=== PATIENT | male | born 1955 | race Caucasian/White ===

== ENCOUNTER → 2016-11-24 | Outpatient (REF) | payer BC, OTHER ==
[2016-11-24 14:58] LABS: BASOPHILS % (AUTO) 1 % (0-2); EOSINOPHILS # (AUTO) 0.3 10^3uL; EOSINOPHILS % (AUTO) 3 % (0-4); LYMPHOCYTES # (AUTO) 3.2 X10^3; MEAN CORPUSCULAR HEMOGLOBIN 30.5 PG (26.0-34.0); MEAN CORPUSCULAR HGB CONC 34.1 g/dL (31.0-37.0); MEAN CORPUSCULAR VOLUME 90 FL (80-100); MEAN PLATELET VOLUME 9.6 FL (6.0-9.5); MONOCYTES # (AUTO) 0.9 X10^3; MONOCYTES % (AUTO) 9 % (3-11); NEUTROPHILS # (AUTO) 5.7 X10^3; NEUTROPHILS % (AUTO) 56 % (51-67); PLATELET COUNT 313 10^3uL (150-450); WHITE BLOOD COUNT 10.18 10^3uL (4.0-11.0)
[2016-11-24 15:07] LABS: ANION GAP 15.7 MEQ/L (3-15); CALCULATED IONIZED CALCIUM 4.3 mg/dL (3.8-4.6); TOTAL PROTEIN 6.8 g/dL (6.4-8.5)
[2016-11-24 15:42] LABS: ERYTHROCYTE SEDIMENTATION RT* 22 mm/hr (0-19)
== END ==
LOC: LAB 14:38
PROVIDERS: ATTEND Family Medicine
DX: R53.83 Other fatigue (principal)
CPT/HCPCS: 80053; 85025; 85652; 86140

== ENCOUNTER 2017-02-02 10:41 | Emergency (ER) | payer OTHER ==
[~2017-02-02] VITALS: Ht 170.2 cm; Wt 60.0 kg
[~2017-02-02 10:41] MED LIST: ASPI-860 PO; BPR75T PO; CA C1TAB74 PO; CHOL200018 PO; DULO60CA58 PO; DULO60CA7; FNT75TD TOP; KETO10TA55 PO; MAGN250T7 PO; OXYC1TAB8 PO; [UNRECOGNIZED DRUG - CODE] PO; duragesic; flexeril; lortab
--- OUTSIDE RECORDS SUMMARY | 2017-02-02 10:46 | XMS REPORT | Continuity of Care Document ---
Author Author [facility] Organization [facility] Address Unknown Phone Unavailable Allergies Active Description Code Type Severity Reaction Onset Reported/Identified Relationship to Patient Clinical Status Yes NKA NKA Drug Allergy N/A N/A Yes No Known Allergies [id number] Drug Allergy Unknown N/A 12/03/2015 Medications Problems Date Dx Coded Attending Type Code Diagnosis Diagnosed By 05/14/2013 Ot 724.5 BACKACHE NOS 05/14/2013 Ot 847.2 SPRAIN LUMBAR REGION 05/14/2013 Ot E849.[address] NEC 05/14/2013 Ot E927.0 OVEREXERTION FROM SUDDEN STRENUOUS MOVEM 09/19/2014 ALFREDO IGLESIAS, BARRY Ramirez Ot 240.9 10/28/2014 ALFREDO IGLESIAS, BARRY Ramirez Ot 276.7 10/28/2014 ALFREDO IGLESIAS, BARRY M Ot 780.79 12/10/2014 Ot 719.45 12/10/2014 Ot 789.30 12/10/2014 Ot V70.4 12/10/2014 Didi IGLESIAS, Tahir Bazzi Ot 805.4 12/10/2014 WILGERS, ORTEGA L ROUSTABOUT PUSHER Ot 240.9 12/10/2014 WILGERS, ORTEGA L ROUSTABOUT PUSHER Ot 780.79 12/10/2014 WILGERS, ORTEGA L ROUSTABOUT PUSHER Ot V77.91 12/10/2014 ALFREDO IGLESIAS, BARYR Ramirez Ot 240.9 12/10/2014 ALFREDO IGLESIAS, BARRY M Ot 276.7 12/10/2014 ALFREDO IGLESIAS, BARRY M Ot 780.79 12/02/2015 Ot 719.45 12/02/2015 Ot 789.30 12/02/2015 Ot V70.4 12/02/2015 Didi IGLESIAS, Tahir Bazzi Ot 805.4 12/02/2015 WILGERS, ORTEGA L ROUSTABOUT PUSHER Ot 240.9 12/02/2015 WILGERS, ORTEGA L ROUSTABOUT PUSHER Ot 780.79 12/02/2015 WILGERS, ORTEGA L ROUSTABOUT PUSHER Ot V77.91 12/02/2015 ALFREDO IGLESIAS, BARRY Ramirez Ot 240.9 12/02/2015 ALFREDO IGLESIAS, BARRY Ramirez Ot 276.7 12/02/2015 ALFREDO IGLESIAS, BARRY Ramirez Ot 780.79 12/02/2015 Ot 719.45 12/02/2015 Ot 789.30 12/02/2015 Ot V70.4 12/02/2015 Didi IGLESIAS, Tahir V Ot 805.4 12/02/2015 WILCORDELL, ORTEGA L ROUSTABOUT PUSHER Ot 240.9 12/02/2015 WILGERS, ORTEGA L ROUSTABOUT PUSHER Ot 780.79 12/02/2015 WILGERS, ORTEGA L ROUSTABOUT PUSHER Ot V77.91 12/02/2015 ALFREDO IGLESIAS, BARRY Ramirez Ot 240.9 12/02/2015 ALFREDO IGLESIAS, BARRY Ramirez Ot 276.7 12/02/2015 ALFREDO IGLESIAS, BARRY Ramirez Ot 780.79 12/05/2015 ALFREDO IGLESIAS, BARRY Ramirez Ot F11.20 OPIOID DEPENDENCE, UNCOMPLICATED 12/05/2015 ALFREDO IGLESIAS, BARRY Ramirez Ot F32.9 MAJOR DEPRESSIVE DISORDER, SINGLE EPISOD 12/05/2015 ALFREDO IGLESIAS, BARRY Ramirez Ot K21.9 GASTRO-ESOPHAGEAL REFLUX DISEASE WITHOUT 12/05/2015 ALFREDO IGLESIAS, BARRY Ramirez Ot Z72.0 TOBACCO USE 01/10/2016 CIERRA ESPINOSA MD Ot N20.1 CALCULUS OF URETER 01/10/2016 CIERRA ESPINOSA MD Ot R10.31 RIGHT LOWER QUADRANT PAIN 01/18/2016 CIERRA ESPINOSA MD Ot N20.1 01/18/2016 CIERRA ESPINOSA MD Ot R10.31 01/20/2016 AMANDA PANDEY DO Ot N50.8 01/20/2016 AMANDA PANDEY DO Ot R10.31 03/01/2016 BARRY FUENTES MD Ot K43.9 VENTRAL HERNIA WITHOUT OBSTRUCTION OR GA 03/01/2016 BARRY FUENTES MD Ot N20.1 CALCULUS OF URETER 03/01/2016 BARRY FUENTES MD Ot R31.9 HEMATURIA, UNSPECIFIED 03/08/2016 BARRY FUENTES MD Ot K43.9 VENTRAL HERNIA WITHOUT OBSTRUCTION OR GA 03/08/2016 BARRY FUENTES MD Ot N20.1 CALCULUS OF URETER 03/08/2016 BARRY FUENTES MD Ot R31.9 HEMATURIA, UNSPECIFIED 03/20/2016 BARRY FUENTES MD Ot M48.03 SPINAL STENOSIS, CERVICOTHORACIC REGION 03/20/2016 BARRY FUENTES MD Ot M54.2 CERVICALGIA 04/19/2016 Eduardo Anglin N20.1 Calculus Of Ureter 04/20/2016 BARRY FUENTES MD Ot M48.03 SPINAL STENOSIS, CERVICOTHORACIC REGION 04/20/2016 BARRY FUENTES MD, Ot M54.2 CERVICALGIA 07/07/2016 Eduardo Anglin MD Ot R10.2 PELVIC AND PERINEAL PAIN 07/08/2016 Eduardo Anglin MD Ot R39.15 URGENCY OF URINATION 07/10/2016 Eduardo Anglin MD Ot R39.15 URGENCY OF URINATION 07/10/2016 Eduardo Anglin MD Ot R39.15 URGENCY OF URINATION 07/17/2016 Eduardo Anglin MD, Ot R10.2 PELVIC AND PERINEAL PAIN 07/20/2016 Eduardo Anglin MD Ot R10.2 PELVIC AND PERINEAL PAIN 07/20/2016 Eduardo Anglin MD Ot R39.15 URGENCY OF URINATION 11/25/2016 Ot 719.45 JOINT PAIN-PELVIS 11/25/2016 Ot 789.30 ABDOMINAL/PELVIC SWELLING,MASS/LUMP UNSP 11/25/2016 Ot V70.4 EXAM-MEDICOLEGAL REASONS 11/25/2016 Didi IGLESIAS, Tahir Bazzi Ot 805.4 FX LUMBAR VERTEBRA-CLOSE 11/25/2016 ORTGEA CASTANON ROUSTABOUT PUSHER Ot 240.9 GOITER NOS 11/25/2016 ORTEGA CASTANON L ROUSTABOUT PUSHER Ot 780.79 OTH MALAISE FATIGUE 11/25/2016 ORTEGA CASTANON L ROUSTABOUT PUSHER Ot V77.91 SCREEN LIPOID DISORDERS 11/25/2016 BARRY FUENTES MD Ot 240.9 GOITER NOS 11/25/2016 BARRY FUENTES MD Ot 276.7 HYPERPOTASSEMIA 11/25/2016 BARRY FUENTES MD Ot 780.79 OTH MALAISE FATIGUE 11/25/2016 AMANDA PANDEY DO Ot N50.8 OTHER SPECIFIED DISORDERS OF MALE GENITA 11/25/2016 AMANDA PANDEY DO Ot R10.31 RIGHT LOWER QUADRANT PAIN 11/25/2016 BARRY FUENTES MD Ot K43.9 VENTRAL HERNIA WITHOUT OBSTRUCTION OR GA 11/25/2016 BARRY FUENTES MD Ot N20.1 CALCULUS OF URETER 11/25/2016 BARRY FUENTES MD Ot R31.9 HEMATURIA, UNSPECIFIED 11/25/2016 BARRY FUENTES MD Ot M48.03 SPINAL STENOSIS, CERVICOTHORACIC REGION 11/25/2016 BARRY FUENTES MD Ot M54.2 CERVICALGIA 11/25/2016 Eduardo Anglin MD Ot R10.2 PELVIC AND PERINEAL PAIN 11/25/2016 Eduardo Anglin MD Ot R39.15 URGENCY OF URINATION 11/29/2016 BARRY FUENTES MD Ot R53.83 OTHER FATIGUE 11/30/2016 Ot 719.45 JOINT PAIN-PELVIS 11/30/2016 Ot 789.30 ABDOMINAL/PELVIC SWELLING,MASS/LUMP UNSP 11/30/2016 Ot V70.4 EXAM-MEDICOLEGAL REASONS 11/30/2016 Didi IGLESIAS, Tahir Bazzi Ot 805.4 FX LUMBAR VERTEBRA-CLOSE 11/30/2016 WILGERS, ORTEGA L ROUSTABOUT PUSHER Ot 240.9 GOITER NOS 11/30/2016 WILGERS, ORTEGA L ROUSTABOUT PUSHER Ot 780.79 OTH MALAISE FATIGUE 11/30/2016 WILGERS, ORTEGA L ROUSTABOUT PUSHER Ot V77.91 SCREEN LIPOID DISORDERS 11/30/2016 BARRY FUENTES MD Ot 240.9 GOITER NOS 11/30/2016 BARRY FUENTES MD Ot 276.7 HYPERPOTASSEMIA 11/30/2016 BARRY FUENTES MD Ot 780.79 OTH MALAISE FATIGUE 11/30/2016 AMANDA PANDEY DO Ot N50.8 OTHER SPECIFIED DISORDERS OF MALE GENITA 11/30/2016 AMANDA PANDEY DO Ot R10.31 RIGHT LOWER QUADRANT PAIN 11/30/2016 BARRY FUENTES MD Ot K43.9 VENTRAL HERNIA WITHOUT OBSTRUCTION OR GA 11/30/2016 BARRY FUENTES MD Ot N20.1 CALCULUS OF URETER 11/30/2016 BARRY FUENTES MD Ot R31.9 HEMATURIA, UNSPECIFIED 11/30/2016 BARRY FUENTES MD Ot M48.03 SPINAL STENOSIS, CERVICOTHORACIC REGION 11/30/2016 BARRY FUENTES MD Ot M54.2 CERVICALGIA 11/30/2016 Eduardo Anglin MD Ot R10.2 PELVIC AND PERINEAL PAIN 11/30/2016 Eduardo Anglin MD Ot R39.15 URGENCY OF URINATION 11/30/2016 ALFREDO IGLESIAS, BARRY Ramirez Ot R53.83 OTHER FATIGUE 11/30/2016 BARRY FUENTES MD, Ot R53.83 OTHER FATIGUE Procedures Results Test Result Range UA (urinalysis) - 07/04/16 10:36 COLLECTION METHOD CLEAN CATCH Color of urine by auto Yellow Urine appearance determination Clear Urine pH measurement by automated test strip 6.0 5.0 - 8.0 Specific gravity of urine by automated test strip 1.020 1.005-1.030 PROTEIN, URINE Negative Urine glucose detection by automated test strip Negative Negative Urine erythrocytes count by automated test strip (number/volume) Trace-intact Negative Urine ketones detection by automated test strip Negative Negative NITRITE,URINE Negative Negative Urine total bilirubin detection by automated test strip Negative Negative Urine urobilinogen measurement by automated test strip (mass/volume) 0.2 0.2-1.0 Urine leukocyte esterase detection by dipstick Negative Negative Microscopic examination of urine - 07/04/16 10:36 Urine volume measurement 12 mL Urine erythrocytes detection by automated method 10-20 Automated urine sediment leukocyte count by microscopy (number/high power field ) None Seen Bacteria None Seen Negative SQUAMOUS EPITHELIAL CELL,UR 0-2 MUCOUS,URINE 1+ Hyaline casts detection in urine sediment by light microscopy Rare Urine culture - 07/04/16 10:36 Urine culture MCKENZIE FOR RESULTS: * - NEW RESULT - RESULT WAS MODIFIED AFTER FINAL STATUS SET Comprehensive metabolic panel - 11/24/16 12:55 Sodium measurement 93 70-110 CARBON DIOXIDE 27 22-29 Serum or plasma anion gap 15.7 3-15 BLOOD UREA NITROGEN 13 7-18 CREATININE SERUM 0.67 0.8-1.5 Brucella species antibody panel (IgG, IgM) 19 10-20 Estimated glomerular filtration rate (GFR) 146.9 Estimated glomerular filtration rate (GFR) non- 121.4 OSMOLALITY,CALCULATED 269 280-300 CALCIUM 9.6 8.8-10.8 Calculated ionized calcium measurement 4.3 3.8-4.6 BILIRUBIN,TOTAL 0.7 0.1-1.0 Serum or plasma alkaline phosphatase measurement 61 38-126 ASPARTATE AMINO TRANSFERASE 23 15-37 ALANINE AMINOTRANSFERASE 26 30-65 Serum or plasma total protein measurement 6.8 6.4-8.5 Serum or plasma albumin measurement 4.0 3.4-5.0 Serum or plasma albumin/globulin mass ratio 1.428 1.1-1.8 C REACTIVE PROTEIN* - 11/24/16 12:55 C REACTIVE PROTEIN* 4.10 0.0-0.9 Complete blood count (CBC) with automated white blood cell (WBC) differential - 11/24/16 12:55 Blood automated leukocyte count 10.18 4.0-11.0 Erythrocytes 4.75 4.50-5.50 12.0-16.0;g/dL 14.5 13.5-17.0 Hematocrit 42.50 39.00-50.00 Automated erythrocyte mean corpuscular volume 90 80-100 Mean corpuscular hemoglobin (MCH) determination 30.5 26.0-34.0 Automated erythrocyte mean corpuscular hemoglobin concentration measurement ( mass/volume) 34.1 31.0-37.0 Erythrocyte distribution width 13.8 11.8 -15.6 Automated blood platelet count 313 150- 450 Automated blood platelet mean volume measurement 9.6 6.0-9.5 Automated neutrophil percentage 56 51- 67 Lymphocytes/100 leukocytes 31 20-46 Automated monocyte percentage 9 3-11 Eosinophil count auto 3 0-4 Automated basophil percentage 1 0-2 Automated blood neutrophil count 5.7 Blood lymphocytes count (number/volume) 3.2 Automated blood monocyte count 0.9 Blood absolute eosinophil count 0.3 Basophils 0.1 Erythrocyte sedimentation rate - 11/24/16 12:55 Erythrocyte sedimentation rate 22 0-19 Encounters ACCT No. Visit Date/Time Discharge Status Pt. Type Provider Facility Loc./Unit Complaint [id number] 06/22/2012 00:00:00 2011 00:00:00 CLAUDETTE Bartlett MD, Parth Jacobo [facility]
--- OUTSIDE RECORDS SUMMARY | 2017-02-02 10:46 | XMS REPORT | Continuity of Care Document ---
Author Author [facility] Organization [facility] Address Unknown Phone Unavailable Allergies Active Description Code Type Severity Reaction Onset Reported/Identified Relationship to Patient Clinical Status Yes NKA NKA Drug Allergy N/A N/A Yes No Known Allergies [id number] Drug Allergy Unknown N/A 12/03/2015 Medications Problems [...] Bazzi Ot 805.4 12/10/2014 WILGERS, ORTEGA L CAN DRYER Ot 240.9 12/10/2014 WILGERS, ORTEGA L CAN DRYER Ot 780.79 12/10/2014 WILGERS, ORTEGA L CAN DRYER Ot V77.91 12/10/2014 ALFREDO IGLESIAS, BARRY Ramirez Ot 240.9 12/10/2014 ALFREDO IGLESIAS, BARRY M Ot 276.7 12/10/2014 ALFREDO IGLESIAS, BARRY M Ot 780.79 12/02/2015 Ot 719.45 12/02/2015 Ot 789.30 12/02/2015 Ot V70.4 12/02/2015 Didi IGLESIAS, Tahir Bazzi Ot 805.4 12/02/2015 WILGERS, ORTEGA L CAN DRYER Ot 240.9 12/02/2015 WILGERS, ORTEGA L CAN DRYER Ot 780.79 12/02/2015 WILGERS, ORTEGA L CAN DRYER Ot V77.91 12/02/2015 ALFREDO IGLESIAS, BARRY Ramirez Ot 240.9 12/02/2015 ALFREDO IGLESIAS, BARRY Ramirez Ot 276.7 12/02/2015 ALFREDO IGLESIAS, BARRY Ramirez Ot 780.79 12/02/2015 Ot 719.45 12/02/2015 Ot 789.30 12/02/2015 Ot V70.4 12/02/2015 Didi IGLESIAS, Tahir V Ot 805.4 12/02/2015 WILCORDELL, ORTEGA L CAN DRYER Ot 240.9 12/02/2015 WILGERS, ORTEGA L CAN DRYER Ot 780.79 12/02/2015 WILGERS, ORTEGA L CAN DRYER Ot V77.91 12/02/2015 ALFREDO IGLESIAS, BARRY Ramirez [...] Bazzi Ot 805.4 FX LUMBAR VERTEBRA-CLOSE 11/25/2016 ORTEGA CASTANON CAN DRYER Ot 240.9 GOITER NOS 11/25/2016 ORTEGA CASTANON L CAN DRYER Ot 780.79 OTH MALAISE FATIGUE 11/25/2016 ORTEGA CASTANON L CAN DRYER Ot V77.91 SCREEN LIPOID DISORDERS 11/25/2016 BARRY [...] FX LUMBAR VERTEBRA-CLOSE 11/30/2016 WILGERS, ORTEGA L CAN DRYER Ot 240.9 GOITER NOS 11/30/2016 WILGERS, ORTEGA L CAN DRYER Ot 780.79 OTH MALAISE FATIGUE 11/30/2016 WILGERS, ORTEGA L CAN DRYER Ot V77.91 SCREEN LIPOID DISORDERS 11/30/2016 BARRY [...] Status Pt. Type Provider Facility Loc./Unit Complaint [id number] 06/22/2012 00:00:00 2011 00:00:00 CLAUDETTE Bartlett MD, Parth Jacobo [facility]
[2017-02-02] MEDS ORDERED: SODIUM CHLORIDE FLUSH 10 ML SYR IV PRN (11:40)
[2017-02-02] MEDS ORDERED: KETOROLAC 30 MG/ML (TORADOL) 1 ML VIAL IV ONE (11:40)
[2017-02-02 12:29] LABS: BASOPHILS % (AUTO) 1 % (0-2); EOSINOPHILS # (AUTO) 0.2 10^3uL; EOSINOPHILS % (AUTO) 3 % (0-4); LYMPHOCYTES # (AUTO) 2.2 X10^3; MEAN CORPUSCULAR HEMOGLOBIN 31.1 PG (26.0-34.0); MEAN CORPUSCULAR HGB CONC 33.9 g/dL (31.0-37.0); MEAN CORPUSCULAR VOLUME 92 FL (80-100); MEAN PLATELET VOLUME 8.4 FL (6.0-9.5); MONOCYTES # (AUTO) 0.4 X10^3; MONOCYTES % (AUTO) 6 % (3-11); NEUTROPHILS # (AUTO) 3.5 X10^3; NEUTROPHILS % (AUTO) 55 % (51-67); PLATELET COUNT 266 10^3uL (150-450); WHITE BLOOD COUNT 6.27 10^3uL (4.0-11.0)
[2017-02-02 12:32] LABS: BILIRUBIN,URINE Negative (Negative); CLARITY,URINE Clear; COLOR,URINE Dark Yellow; GLUCOSE, URINE (UA) Negative (Negative); LEUKOCYTE ESTERASE ,URINE Negative (Negative); UROBILINOGEN,URINE 0.2 mg/dL (0.2-1.0)
[2017-02-02 12:37] LABS: ALBUMIN 3.7 g/dL (3.4-5.0); ANION GAP 9.5 MEQ/L (3-15); CALCULATED IONIZED CALCIUM 4.1 mg/dL (3.8-4.6); TOTAL PROTEIN 6.5 g/dL (6.4-8.5)
[2017-02-02 12:48] LABS: URINE CENTRIFUGED VOLUME 12 mL
--- NOTE | 2017-02-02 12:48 | Diagnostic Imaging Report ---
PROCEDURE: CT abdomen and pelvis without contrast. TECHNIQUE: Multiple contiguous axial images were obtained through the abdomen and pelvis without the use of intravenous contrast. INDICATION: Bilateral flank pain. COMPARISON STUDY: CT dated 02/25/2016. FINDINGS: The lung bases are clear. The gallbladder is absent. Mild dilatation of the common bile duct appears stable. No intrahepatic duct dilatation is present. The pancreas, spleen, and adrenal glands appear normal. There is marked artifact from the patient's left hip prosthesis. No definite calculi are identified. Kidneys appear normal. There is no hydronephrosis. No ascites or free air is present. Some calcifications are again seen within the pancreas. Just above the iliac crest there is a posterior lateral abdominal wall hernia containing a loop of colon. Large amount stool is present within the colon. No inflammation is present. No ascites is identified. Previous kyphoplasty changes are present at T12 and L3. Anterolisthesis of L5 on S1 is stable. Old pelvic fractures are again identified. IMPRESSION: 1. No renal calculi or hydronephrosis is present. 2. There is a right posterolateral hernia with the ascending colon herniating into this. A large amount of stool is present in the colon. 3. Stable dilatation of the extrahepatic bile ducts. Dictated by: Dictated on workstation # [id number]
[2017-02-02] MEDS ORDERED: DICY10CA26 PO (13:28)
[2017-02-02 18:32] VITALS: BP 124/63
== END 2017-02-02 13:37 | disposition home or self-care (01) ==
LOC: ED 10:42
DX: K45.8 Other specified abdominal hernia without obstruction or gangrene (principal); R10.31 Right lower quadrant pain; G89.29 Other chronic pain; F11.20 Opioid dependence, uncomplicated
CPT/HCPCS: 36415; 74176; 80053; 81003; 81015; 83690; 85025; 96361; 96374; 99284; J1885; J7030; 99283